=== PATIENT | male | born 1970 | race Caucasian/White ===

== ENCOUNTER 2019-09-04 19:32 | Emergency (ER) | payer BC, SELFPAY ==
[2019-09-04] VITALS (14 sets, daily range): BP systolic 112–145; BP diastolic 72–89; PULSE 57–71; RESP 16–28; TEMP 36.9; O2SAT 19–100
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
[2019-09-04] MEDS: fentaNYL 100 MCG/2 ML VIAL 50 MCG IVP ×2 (19:51→20:16)
[2019-09-04] MEDS: fentaNYL 100 MCG/2 ML VIAL (19:51)
[2019-09-04] MEDS: Omnipaque 350 MG/ML 100 ML BTL IJ (19:54)
[2019-09-04 20:00] LABS: Abs Immature Grans 0.03 k/cumm (0.0-0.09); Absolute Basophil Count 0.01 k/cumm (0.0-0.2); Absolute Eosinophil Count 0.03 k/cumm (0.0-0.7); Absolute Lymphocyte Count 1.89 k/cumm (1.2-3.4); Absolute Monocyte Count 0.56 k/cumm (0.11-0.7); Absolute Neutrophil Count 6.87 k/cumm (1.2-6.7); Basophils % 0.1; Eosinophils % 0.3; HCT 40.9 % (40.0-50.0); HGB 13.4 g/dL (13.5-17.5); Immature Grans % 0.3 %; Lymphocytes % 20.1; Mean Corp. HGB Concentration 32.8 g/dL (32.0-36.0); Mean Corpuscular Hemoglobin 26.4 pg (27.0-33.0); Mean Corpuscular Volume 80.5 fL (80-95); Mean Platelet Volume 10.6 fL (8.0-11.0); Neutrophils % 73.2; Platelet Count 190 x1000/uL (130-400); RBC 5.08 m/cumm (4.50-6.00); RBC Distribution Width 14.1 % (11.8-14.1); White Blood Cell Count 9.39 k/cumm (4.4-10.8)
[2019-09-04] MEDS: Normal Saline - Diluent 50 ML VIAL IV (20:10)
[2019-09-04] MEDS: Normal Saline Flush 10 ML SYR IVP (20:11)
[2019-09-04 20:15] LABS: ALT 58 U/L (16-63); AST 54 U/L (15-37); Albumin 4.5 g/dL (3.4-5.0); Alkaline Phosphatase 44 U/L (46-116); Anion Gap 13.1 mmol/L (3-11); BUN 30 mg/dL (7-18); Bilirubin, Total 0.5 mg/dL (0.2-1.0); CO2 24.9 mmol/L (21.0-32.0); CREATININE 1.42 mg/dL (0.70-1.30); Calcium 9.6 mg/dL (8.5-10.1); Chloride 103 mmol/L (98-107); Estimated GFR 53.21 (mL/min/1.73m2); Glucose 155 mg/dL (74-106); Magnesium 1.9 mg/dL (1.8-2.4); Potassium 3.6 mmol/L (3.5-5.1); Sodium 141 mmol/L (136-145); Total Protein 7.7 g/dL (6.4-8.2); Troponin I < 0.05 ng/mL (<0.06)
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
[2019-09-04 20:22] LABS: INR 1.1 (0.9-1.1)
[2019-09-04] MEDS: Lactated Ringers 1,000 ML 1000 ML IV (20:31)
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
[2019-09-04] MEDS: HYDROmorphone 2 MG/ML VIAL 1 MG IVP (20:56)
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
== END 2019-09-04 21:20 | disposition short-term general hospital (02) ==
PROVIDERS: Student in an Organized Health Care Education/Training Program; Emergency Provider Physician Assistant
DX: S22.41XA Multiple fractures of ribs, right side, initial encounter for closed fracture (principal); S27.0XXA Traumatic pneumothorax, initial encounter; S37.061A Major laceration of right kidney, initial encounter; S36.898A Other injury of other intra-abdominal organs, initial encounter; T79.7XXA Traumatic subcutaneous emphysema, initial encounter; S42.001A Fracture of unspecified part of right clavicle, initial encounter for closed fracture; V18.0XXA Pedal cycle driver injured in noncollision transport accident in nontraffic accident, initial encounter; Y93.55 Activity, bike riding
CPT/HCPCS: 36415; 74177; 80053; 86850; 86900; 86901; 93005; 96361; 96374; 96375; 96376; 99285; 70450; 71260; 72125; 83735; 84484; 85025; 85610; 93010; 99281; J3010; J3490; L3650

== ENCOUNTER 2019-09-20 09:18 | Outpatient (CLI) | payer BC, SELFPAY ==
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
== END 2019-09-20 09:38 ==
PROVIDERS: Referring Provider Student in an Organized Health Care Education/Training Program; Visit Provider Student in an Organized Health Care Education/Training Program
DX: S42.021A Displaced fracture of shaft of right clavicle, initial encounter for closed fracture (principal)
CPT/HCPCS: 73000

== ENCOUNTER 2019-09-21 09:28 | Day surgery (SDC) | payer BC, SELFPAY ==
--- NOTE | 2019-09-20 10:00 | ANES_ITS ---
Anesthesia Note After thorough review of the [facility] chart, there are no contraindications to proceeding with a GETA and ISB for post op analgesia if indicated.
[2019-09-21] VITALS (11 sets, daily range): BP systolic 110–130; BP diastolic 57–90; PULSE 47–57; RESP 16–22; TEMP 36–36.4; O2SAT 96–100
[2019-09-21] MEDS: Lactated Ringers 1,000 ML 100 ML IV ×2 (10:18→15:44)
--- NOTE | 2019-09-21 11:45 | DI.RAD_ITS ---
EXAM: XR CLAVICLE RT CLINICAL HISTORY: right displaced midshaft clavicle fracture TECHNIQUE: 2D and realtime digital imaging was performed. CONTRAST MATERIAL: Refer to procedure report. COMPARISON: CR XR CLAVICLE RT from 09/20/2019 FINDINGS: Fluoroscopy was provided for Dr. Howard during the performance of a reduction and internal fixation of the right clavicular fracture. Please refer to the procedure report for complete details. Fluoro time: Not obtained. IMPRESSION:
--- NOTE | 2019-09-21 11:46 | PDOC.ANES ---
Date of service: 09/21/19 Time of Service: 11:47 Anesthesia Note Performed a superficial cervical plexus block using 10 of 0.25% bupivacaine and 5ml exparel for clavicle repair. After about 20 minutes, he complained of poor voice/being hoarse. After examination, he is able to speak, swallow and take deep breaths and cough. I explained that this rarely occurs as it is a side effect of the block and appears to be a temporary paralysis of his right recurrent laryngeal nerve. This should resolve in 10-16 hours but may persist for 2-4 days given the exparel. We will continue to followup with him after surgery to make sure it has resolved. There is no reason he can not continue to his expected course and go home after surgery.
[2019-09-21] MEDS: ceFAZolin 2 GM/50 ML BAG IVPB (12:40)
--- NOTE | 2019-09-21 16:01 | W.PM.DSUDISC ---
Discharge Plan Disposition Patient Disposition: HOME Condition: Stable Discharge Details Reason For Visit: DISPLACED CLAVICLE FX Attending Provider: David Howard Primary Care Provider: Suzanne Travis Home Meds and New Rx's Prescriptions: New ibuprofen 800 mg tablet 800 mg PO BID PRN (Reason: pain, moderate) Qty: 30 RF: 0 aspirin 81 mg tablet,delayed release (DR/EC) 81 mg PO DAILY 14 Days Qty: 14 RF: 0 oxycodone 5 mg tablet 5 - 10 mg PO Q4H PRN (Reason: moderate to severe pain) Qty: 9 RF: 0 Continued acetaminophen 500 mg tablet 500 mg PO Q6H PRNRF: 0 Discharge Instructions Additional Instructions: Surgery: Right clavicle open reduction internal fixation Activity: Non-weightbearing right upper extremity except for activities of daily living. You should use the sling whenever you are out of the house. At home it is best to remove the sling and rest the arm on a pillow at your side or support the operative side with your other hand. You may allow the arm to dangle at your side. Gently increase both passive and active range of motion over the next few weeks. You should take it easy until there is early bony healing approximately 6 to 8 weeks from surgery. A physical therapy prescription will be provided separately in the office at follow-up if needed. Prescriptions: Aspirin 81 mg take 1 daily to prevent a blood clot for 2 weeks Ibuprofen 800 mg take 1 every 12 hours with a meal as needed for moderate pain Oxycodone 5 mg take 1-2 every 4-6 hours as needed for severe pain You may use [id number] Tylenol (acetaminophen) as needed for mild pain. These pain medications may be taken all at once or in different combinations as needed. Ondansetron (Zofran) 4 mg take 1 orally dissolving tablet every 6 hours as needed for nausea or vomiting Also, recommend Colace (docusate) as a stool softener as surgery and pain medicine cause constipation. Dressings: Leave dressing in place until follow-up. Keep clean and dry at all times. Please do not shower. Follow-up: 10-[address] Howard Please call the office during business hours with any questions or concerns. Let us know right away if you develop any redness, drainage, fevers, chest pain, or trouble breathing. Do not drink alcohol or drive for at least 24 hours after anesthesia. Referrals: David Howard MD [ [facility] STAFF PHYSICIAN] - Equipment/Supplies: Splint Remove Dressings/Wound Care:: Do Not Remove Diet:: As Tolerated Discharge Orders Discharge Orders: Discharge Order (Routine); Ordered 09/21/19 Ordered By: David Howard DS: Diagnosis Discharge Diagnosis (1) Fracture of right clavicle: Status: Acute
--- NOTE | 2019-09-21 16:20 | ROE_ITS ---
Date of service: 09/21/19 Time of Service: 16:01 Operative Note Operative Note DATE OF PROCEDURE: 09/21/19 PRE-OP DIAGNOSIS: Right displaced midshaft clavicle fracture POST-OP DIAGNOSIS: same PROCEDURE: Right clavicle ORIF, CPT # 08372 SURGEON: David Howard VEGETABLE SPECKER: Irene Swenson ANESTHESIA: GETA, regional and local ESTIMATED BLOOD LOSS: 30 COMPLICATIONS: None Patient was transported to: PACU Patient's condition: stable Implants: Synthes 8-hole 3.5 mm LCP superior clavicle plate with 5x 3.5mm locking screws; 1x 3.5 mm cortex lag screw Indications: Please see complete medical record for details. Findings: Comminuted widely displaced and shortened distal midshaft clavicle fracture Procedure Description: In the operating room, general anesthesia was induced. The patient was positioned supine on the operating room table. All bony prominences were well-padded. Preoperative antibiotics were administered. The right chest and shoulder was prepped and draped in the usual sterile fashion. The correct patient, procedure, and side of the procedure were all verified prior to incision. The clavicle fracture was palpated as well as localized under fluoroscopic guidance. 20 cc of 0.25% bupivacaine with epinephrine was infiltrated about the platysma and subcutaneous tissues medial and lateral to the fracture site. An incision was centered over the anterior clavicle and carried a few centimeters medially and laterally. Full-thickness flaps through skin subcutaneous tissue platysma were carried down to the fracture site. Appropriate hemostasis was achieved. There was one crossing supraclavicular nerve over the fracture site that could not reasonably be preserved. Periosteum was elevated superiorly with an elevator. The skin incisions were appropriately extended medially and laterally. The fracture ends in fracture site was cleaned of significant early callus, fibrous debris, and soft tissue. Inferior attachments of the periosteum and platysma were preserved as much as possible. Bone-holding forceps were used to manipulate the bone ends into a reduced nearly anatomic position. An additional clamp was placed across the fracture obliquity and used to adjust the fracture into anatomic reduction and compression. A piece of comminution posteriorly was used to confirm rotation and length for the reduction. This bone had tenuous soft tissue attachments and when it was mobilized for suture repair to the posterior margin of fracture site it ended up free of any soft tissue attachment. As such, the decision was made to remove it from the wound. There was strong bone a few centimeters obliquely overlapping between the proximal and distal fragment, the decision was made to place a 3.5 mm lag screw. The anterior cortex was drilled with the 3.5 mm drill, the top hat was placed, and the far cortex drilled with the 2.5 mm drill. A proper length 3.5 mm cortex lag screw was then placed and tightened with excellent fixation and compression across the fracture ends. The reduction forceps were all removed. The fracture did not budge. Thel reduction was confirmed on fluoroscopy as well as under direct visualization. The reduction was excellent and did not require any further clamping or manipulation to maintain its position. Various 7 and 8 hole superior clavicle precontoured anatomic plates were placed over the fracture, and the plate with the best fit and screw options chosen. This had to be the longer of the plate options given the significant fracture length and obliquity in order to obtain sufficient medial and lateral screws that were not fixated through narrowed bone about the fracture ends. The plate was bent just a bit to best fit the patient's anatomy at the medial tip and laterally from the fracture site. The the medial screw hole from the fracture site was predrilled through the locking guide and the locking screw hole with the 2.5 mm drill and an appropriately lengthed 3.5 mm cortex screw was placed and prior to fully tightening the screw the plate was adjusted in the anterior posterior direction to sit centrally over the medial and lateral aspects of the clavicle. The screw was then finally tightened to complete compression of the plate to bone medially. Next, the lateral screw hole just lateral fracture site was predrilled and another cortex screw was placed in a similar fashion finalizing compression of the plate to the bone. The most medial screw hole and then the most lateral 2 screw holes were predrilled and filled with appropriate length locking bicortical screws for the most rigid construct in order promote primary bone healing and this lagged, reduced fracture. The initially placed cortex screws just medial and lateral to the fracture site were sequentially removed, the locking guide placed, and re- drilled with the 2.8 mm locking drill prior to placing locking screws in these holes as well. Locking screws were also chosen to appropriately minimize motion at the fracture site in this patient who is likely to be very active early in his recovery. Final AP and [id number] fluoroscopy was used to confirm appropriate fracture reduction, hardware placement, and all screw lengths. All screws were final tightened. Lag screw still had excellent fixation strength. The construct was tested under direct manipulation and manual stress and exhibited excellent fixation strength with no motion. There was a piece of anterior comminution lateral to the fracture site. A suture tape was passed about this bone fragment as well as around the clavicle and plate construct and tightened securing it appropriately to it anterior bone donor site. The wound was copiously irrigated normal saline. Deepest fascial tissue including periosteum were closed completely over the plate and bone using 0 Monocryl in a buried interrupted fashion. Subcutaneous tissues were copiously irrigated with normal saline. Subcutaneous tissue and platysma was closed using 2-0 Monocryl in a buried interrupted fashion. Skin was closed using 3-0 Monocryl in a running subcuticular fashion. Skin glue was applied over the incision followed by a Mepilex bandage. The patient awoke from anesthesia without complication and was transferred to the recovery room in a stable condition.
[2019-09-25 23:19] LABS: SARS-CoV-2 RNA Undetected (Undetected)
== END 2019-09-21 17:34 | disposition home or self-care (01) ==
PROVIDERS: Visit Provider Student in an Organized Health Care Education/Training Program
PROC: (CPT 23515; principal; 2019-09-21 10:45)
DX: S42.021A Displaced fracture of shaft of right clavicle, initial encounter for closed fracture (principal); V19.9XXA Pedal cyclist (driver) (passenger) injured in unspecified traffic accident, initial encounter; Y93.55 Activity, bike riding; Z11.59 Encounter for screening for other viral diseases
CPT/HCPCS: 23515; C1713; 76942; U0003; 73000; J0690; J1100; J2001; J2250; J2405; J2704; L3650

== ENCOUNTER 2019-10-03 09:21 | Outpatient (CLI) | payer BC, SELFPAY ==
--- NOTE | 2019-10-03 09:00 | DI.RAD_ITS ---
EXAM: XR CLAVICLE RT CLINICAL HISTORY: fu right clavicle TECHNIQUE: COMPARISON: CR XR CLAVICLE RT from 09/20/2019 RF XR CLAVICLE RT from 09/21/2019 FINDINGS: Two views were obtained and show plate and screw fixation midclavicular fracture with no gross interv al change in alignment in comparison with intraoperative films of September 20. Fixation of the anterio r glenoid is noted as well. IMPRESSION:
== END 2019-10-03 09:41 ==
PROVIDERS: Visit Provider Student in an Organized Health Care Education/Training Program
DX: S42.001D Fracture of unspecified part of right clavicle, subsequent encounter for fracture with routine healing (principal)
CPT/HCPCS: 73000

== ENCOUNTER 2019-10-31 09:14 | Outpatient (CLI) | payer BC, SELFPAY ==
--- NOTE | 2019-10-31 08:45 | DI.RAD_ITS ---
EXAM: XR CLAVICLE RT CLINICAL HISTORY: 1st post op ORIF R CLAVICLE TECHNIQUE: 2D digital imaging was performed. COMPARISON: CR XR CLAVICLE RT from 10/03/2019 FINDINGS: There is again seen a sideplate and screws transfixing the right clavicular fracture. There has been no change in alignment of the orthopedic hardware or fracture components. No new fracture is identi fied. IMPRESSION: Stable right clavicle. DATA REPOSITORY: RADIATION DOSE DELIVERED:
== END 2019-10-31 09:34 ==
PROVIDERS: Visit Provider Student in an Organized Health Care Education/Training Program
DX: S42.001A Fracture of unspecified part of right clavicle, initial encounter for closed fracture (principal)
CPT/HCPCS: 73000

== ENCOUNTER 2019-12-11 01:21 | Outpatient (CLI) | payer BC, SELFPAY ==
[2019-12-12 20:41] LABS: COVID-19 RT-PCR Result NEGATIVE (Negative)
== END 2019-12-11 01:41 ==
PROVIDERS: Visit Provider Internal Medicine Gastroenterology
DX: Z11.59 Encounter for screening for other viral diseases (principal); Z01.818 Encounter for other preprocedural examination
CPT/HCPCS: U0003

== ENCOUNTER 2019-12-12 13:58 | Outpatient (CLI) | payer BC, SELFPAY ==
--- NOTE | 2019-12-12 08:45 | DI.RAD_ITS ---
EXAM: XR CLAVICLE RT CLINICAL HISTORY: F/U ORIF R CLAVICLE TECHNIQUE: 2D digital imaging was performed. COMPARISON: CR XR CLAVICLE RT from 10/31/2019 FINDINGS: BONES: A fixation plate is again noted along the mid to distal clavicle for fracture fixation. There has been no change in fracture or hardware alignment. No bony destructive lesion is seen. Status p ost glenoid surgery with screws and metallic anchors. JOINTS: No dislocation present. There are degenerative changes of the glenohumeral joint and mild de generative changes of the AC joint. SOFT TISSUE: Normal IMPRESSION: Stable appearance of postsurgical and degenerative changes. DATA REPOSITORY: RADIATION DOSE DELIVERED:
--- NOTE | 2019-12-12 09:00 | DI.RAD_ITS ---
EXAM: XR RIBS ONLY RT CLINICAL HISTORY: F/U FRACTURE. COMPARISON: CT CT CHEST/ABD/PEL W from 09/04/2019 FINDINGS: LUNGS: Clear. No pneumothorax is seen. BONES: There are subacute appearing right mid and lower lateral rib fractures. Fixation plate is not ed a along the distal clavicle. Multiple screws are seen in the glenoid. There are glenohumeral rosalba nt degenerative changes. IMPRESSION: Subacute lateral rib fractures.
== END 2019-12-12 14:18 ==
PROVIDERS: Visit Provider Student in an Organized Health Care Education/Training Program
DX: S22.41XA Multiple fractures of ribs, right side, initial encounter for closed fracture (principal); S42.001A Fracture of unspecified part of right clavicle, initial encounter for closed fracture; M19.011 Primary osteoarthritis, right shoulder
CPT/HCPCS: 71100; 73000

== ENCOUNTER 2020-09-10 14:43 | Outpatient (CLI) | payer BC, SELFPAY ==
--- NOTE | 2020-09-10 14:30 | DI.RAD_ITS ---
Exam(s) XR CLAVICLE RT EXAM: XR CLAVICLE RT CLINICAL HISTORY: right clavicle fx f/u. TECHNIQUE: 2D digital imaging was performed. COMPARISON: CR XR CLAVICLE RT from 12/12/2019 FINDINGS: Again noted is a dorsal fusion plate across at healing clavicular fracture site. There has been furt her healing. Fracture line is no longer visible. No hardware loosening no radiographic evidence of osteomyelitis. The AC joint is not distracted. Again noted is hardware in the ipsilateral glenohumeral joint including evidence of labral surgery an d glenoid fracture repair. There is also loose intra-articular body in the inferior recess noted of the glenohumeral joint. There also healed upper right rib fractures. IMPRESSION: DATA REPOSITORY: RADIATION DOSE DELIVERED:
== END 2020-09-10 14:44 | disposition home or self-care (01) ==
LOC: DIORS 14:43
PROVIDERS: Visit Provider Student in an Organized Health Care Education/Training Program
DX: S42.021D Displaced fracture of shaft of right clavicle, subsequent encounter for fracture with routine healing (principal); X58.XXXD Exposure to other specified factors, subsequent encounter
CPT/HCPCS: 73000

== ENCOUNTER 2020-09-11 03:07 | Outpatient (CLI) | payer BC, SELFPAY ==
[2020-09-11 11:16] LABS: Source Nasal/Nares
[2020-09-11 14:28] LABS: COVID-19 PCR Negative (Negative)
== END 2020-09-11 03:08 | disposition home or self-care (01) ==
LOC: LBO 03:08
PROVIDERS: Visit Provider Student in an Organized Health Care Education/Training Program
DX: Z20.822 Contact with and (suspected) exposure to COVID-19 (principal); Z01.818 Encounter for other preprocedural examination
CPT/HCPCS: 87635

== ENCOUNTER 2020-09-12 06:22 | Day surgery (SDC) | payer BC, SELFPAY ==
[2020-09-12] VITALS (8 sets, daily range): BP systolic 99–117; BP diastolic 46–76; PULSE 47–55; RESP 12–16; TEMP 36.2–36.4; O2SAT 97–99; BMI 26.4
--- NOTE | 2020-09-12 06:22 | W.ANESPRE ---
General Info Date of Service Date Performed: 09/12/20 Height: 6 ft 1 in Weight: 90.718 kg Body Mass Index (BMI): 26.4 Surgical Procedure: Operation Date: 09/12/20 07:40 Proposed Procedures Side Surgeon p Hardware Removal RT CLAVICLE Right David Howard MD Meds Allergies and Home Medications Allergies Allergy/AdvReac Type Severity Reaction Status Date / Time No Known Allergies Allergy Verified 09/12/20 06:34 Home Medication Medication Instructions Recorded acetaminophen 500 mg tablet 500 mg PO Q6H PRN 09/20/19 ibuprofen 800 mg PO BID PRN #30 tab 09/21/19 allopurinol 100 mg tablet 100 mg PO DAILY 09/10/20 ibuprofen 800 mg PO BID PRN #20 tab 09/12/20 tramadol 50 mg PO Q8H PRN PRN #5 tab 09/12/20 Current Visit Medications: Current Medications Generic Name Dose Route Start Last Admin Trade Name Freq PRN Reason Stop Dose Admin Ringer's Solution 1,000 mls @ 100 mls/hr 09/12/20 06:00 IV 10/11/20 23:59 INFUSION ISSAC Cefazolin Sodium/Dextrose 2 gm in 50 mls @ 100 mls/hr 09/12/20 06:00 Ancef Duplex IVPB 09/12/20 16:00 PREOP ISSAC IV Miscellaneous Supplies 1 each 09/12/20 06:00 Iv Access IV 10/11/20 23:59 DIRECTED ISSAC Sodium Chloride 0 ml 09/12/20 06:00 Normal Saline Flush 10 Ml Syr IV 10/11/20 23:59 PRN PRN Sodium Chloride 0 ml 09/12/20 06:00 Normal Saline 10 Ml Vial IJ 10/11/20 23:59 DIRECTED PRN Sterile Water 0 ml 09/12/20 06:00 Water,Injection,Sterile 10 Ml Vial IJ 10/11/20 23:59 DIRECTED PRN PFSH Active Problems Active Problems: Problem Status Onset Code Painful orthopaedic hardware [id number] Medical History Medical History Achilles tendon injury Gout Surgical History Surgical History History of shoulder surgery Hx of hand surgery Hx of knee surgery meniscus repair Tobacco Smoking/Tobacco Use Status: Never Alcohol Alcohol Intake: current Alcohol intake frequency: a few times a week Alcohol type: beer and wine Substance Use Substance use: Never Substance use type: does not use Vital Signs and Lab Results Lab Results Blood Type / Crossmatch: No Data to Display Complete Blood Count: No Data to Display Complete Metabolic Panel: No Data to Display Liver Function Panel: No Data to Display Coagulation Panel: No Data to Display Cardiac Panel: No Data to Display Arterial Blood Gas: No Data to Display Venous Blood Gas: No Data to Display Pancreas Panel: No Data to Display Thyroid Panel: No Data to Display Infectious Disease: Coronavirus (COVID-19)(PCR) Negative (Negative) 09/11/20 10:35 09/11/20 Coronavirus 2019 Source Nasal/Nares 09/11/20 10:35 09/11/20 Blood Cultures: No Data to Display Toxicology Panel: No Data to Display Anesthesia Assessment and Plan Anesthesia History Personal History: No History of Anesthesia Complications Family History: No Family History of Anesthesia Complications Exercise Tolerance Exercise Tolerance: Metabolic Equivalents>4 Pertinent Negatives Pertinent Negatives: No Symptoms of GERD, No Major Cardiovascular Symptoms or Complaints, No Major Pulmonary Symptoms or Complaints and No History of CVA/TIA Cardiac & Pulmonary Exam Cardiac Exam: Normal S1/S2 Heart Sounds Pulmonary Exam: Clear Bilateral Breath Sounds Airway Exam Known Difficult Airway: No Mallampati Class: 1 Mouth Opening: Normal (> 3cm) Thyromental Distance: Greater than 3 cm Neck Range of Motion: Full ROM Neck Circumference: Normal Teeth Condition: Normal Dentition ASA Classification ASA Score: ASA 2 Emergency Case?: No NPO Status NPO Status: NPO Clears >2 hours, Solids >8 hours Anesthesia Plan Resuscitation Status: Full Code Anesthesia Technique: General Anesthesia Airway Planned: LMA Monitors Used: Standard Monitors Preoperative Comments:: 50 yo male for painful hardware removal from clavicle. Previous glide 3 grade 1, no masking documented. Also, RLN likely temporally blocked during hardware placement.
[2020-09-12] MEDS: Lactated Ringers 1,000 ML 100 ML IV (07:00)
--- NOTE | 2020-09-12 07:15 | DI.RAD_ITS ---
Exam(s) XR CLAVICLE RT LIMITED 1V EXAM: XR CLAVICLE RT LIMITED 1V CLINICAL HISTORY: RIGHT CLAVICLE PAINFUL HARDWARE. TECHNIQUE: 2D digital imaging was performed. COMPARISON: CR XR CLAVICLE RT from 09/10/2020 CR XR CLAVICLE RT from 09/10/2020 FINDINGS: Fluoroscopy was provided during orthopedic procedure consisting of removal of hardware from right cla vicle. Submitted C-arm image reveals absence of previously present dorsal fusion plate and multiple screws from the clavicle. IMPRESSION: As above. Total fluoroscopy time 3.6 seconds Total clipped of dose 0.24mGy DATA REPOSITORY: RADIATION DOSE DELIVERED:
[2020-09-12] MEDS: ceFAZolin 2 GM/50 ML BAG IVPB (07:29)
--- NOTE | 2020-09-12 08:54 | W.PM.DSUDISC ---
Discharge Plan Disposition Patient Disposition: HOME Condition: Stable Discharge Details Reason For Visit: (R) CLAVICLE REMOVAL OF HARDWARE Attending Provider: David Howard Primary Care Provider: Suzanne Travis [place] Meds and New Rx's Prescriptions: New ibuprofen 800 mg tablet 800 mg PO BID PRN (Reason: pain, moderate) Qty: 20 RF: 0 tramadol 50 mg Tablet 50 mg PO Q8H PRN PRN (Reason: severe pain) Qty: 5 RF: 0 Continued acetaminophen 500 mg tablet 500 mg PO Q6H PRNRF: 0 allopurinol 100 mg tablet 100 mg PO DAILY RF: 0 ibuprofen 800 mg tablet 800 mg PO BID PRN (Reason: pain, moderate) Qty: 30 RF: 0 Discharge Instructions Additional Instructions: Surgery: Right clavicle removal of hardware Activity: Weightbearing as tolerated. Ice and elevation may minimize swelling and discomfort over the next few days. Recommend avoiding high impact and high risk activities for about 2 weeks. Prescriptions: Ibuprofen 800 mg take 1 every 12 hours with a meal as needed for moderate pain Tramadol 50 mg take 1 every 8 hours as needed for severe pain You may use [id number] Tylenol (acetaminophen) as needed for mild pain. These pain medications may be taken all at once or in different combinations as needed. Also, recommend Colace (docusate) as a stool softener as surgery and pain medicine cause constipation. Dressings: Leave dressing in place for 5 days. May then remove and leave open to air or cover incision with Band-Aid. May shower after 7 days. Follow-up: 10-[address] Howard (09/25/20 at 8:45 AM) Let us know right away if you develop any redness, drainage, fevers, chest pain, or trouble breathing. Do not drink alcohol or drive for at least 24 hours after anesthesia. Please call the office during business hours with any questions or concerns. Referrals: David Howard MD [ [facility] STAFF PHYSICIAN] - Discharge Orders Discharge Orders: Discharge Order (Routine); Ordered 09/12/20 Ordered By: David Howard DS: Diagnosis Discharge Diagnosis (1) Painful orthopaedic hardware: Status: Acute
--- NOTE | 2020-09-12 09:01 | W.PM.OP ---
Date of service: 09/12/20 Time of Service: 08:00 Operative Note Operative Note DATE OF PROCEDURE: 09/12/20 PRE-OP DIAGNOSIS: Right clavicle symptomatic hardware POST-OP DIAGNOSIS: same PROCEDURE: Right clavicle removal of hardware, CPT# 80279 SURGEON: David Howard MINI SHIFTER: Mann Terry ANESTHESIA TYPE: Local By Surgeon and General LMA/ETT Refer to Anesthesia Record ESTIMATED BLOOD LOSS: 5 PATHOLOGY: none sent COMPLICATIONS: None Patient was transported to: PACU Patient's condition: stable Indications: Please see complete medical record for details. Procedure Description: In the operating room, general anesthesia was induced. The patient was positioned supine on the operating room table. All bony prominences were well-padded. Preoperative antibiotics were administered. The right clavicle was prepped and draped in the usual sterile fashion. The correct patient, procedure, and side of the procedure were all verified prior to incision. The prior incision was identified and preinjected superficially and deeply about the palpable hardware with 30 cc of 0.5% bupivacaine containing epinephrine. The central about 80% of the incision was opened sharply raising full-thickness flaps down to the clavicle and palpable hardware. Elevators were used to expose the clavicle plate and screws medially and laterally as well as identify the anterior cortex screw and more lateral suture tape cerclage. There was excellent healing of robust soft tissue over the entirety of the hardware with early bone coverage anteriorly and centrally. The fracture site was completely healed. There was no sign of deep space infection. The suture tape was cut and removed in entirety. The hex screwdriver was used to remove the cortex screw. In a sequential fashion working from medial to lateral each locking screw was then disengaged carefully from the plate and removed in entirety. The plate was gently freed from soft tissue and bone with elevators and removed as well. Final x-ray confirmed excellent anatomic healing of the clavicle and removal of all hardware. Soft tissue and bony prominences were removed with rongeur and smoothed with rasp. Each screw hole was lightly abraded with a curette. The deep and superficial wound was copiously irrigated with normal saline. There was excellent hemostasis. Deep tissue was closed over the clavicle using 2-0 Monocryl in a buried interrupted fashion. Subcutaneous tissue was closed also using 2-0 Monocryl in a buried interrupted fashion. The skin was closed using 3-0 Monocryl in a running subcuticular fashion. The incision was covered with skin glue and a Mepilex bandage. The patient awoke from anesthesia without complication and was transferred to the recovery room in a stable condition.
--- NOTE | 2020-09-12 10:25 | W.ANESPOSTOP ---
Postoperative Evaluation Date, Time and Location Date Performed: 09/12/20 Time Performed: 10:25 Patient Location: Day [facility] Unit Vital Signs Most Recent Imported Vital Signs: Most Recent Vital Signs Temp Pulse Resp BP Pulse Ox 36.2 C L 55 L 16 108/74 99 09/12/20 10:13 09/12/20 10:13 09/12/20 10:13 09/12/20 10:13 09/12/20 10:13 Pain Score Most Recent Pain Score: Most Recent Pain Score Pain Level 0 09/12/20 10:13 Assessment Mental Status: Awake (Alert & Oriented to Patient Baseline) Airway and Respiratory Function: Patent airway with normal (patient baseline) respiratory exam Cardiovascular Function: Hemodynamically Stable Hydration Status: Adequately Hydrated Nausea & Vomiting: No Nausea or Vomiting Pain: Pt. Denies Any Pain Peripheral Nerve Block: Patient did not receive a nerve block
== END 2020-09-12 10:55 | disposition home or self-care (01) ==
PROVIDERS: Visit Provider Student in an Organized Health Care Education/Training Program
PROC: (CPT 20680; principal; 2020-09-12 07:30)
DX: T84.84XA Pain due to internal orthopedic prosthetic devices, implants and grafts, initial encounter (principal)
CPT/HCPCS: 20680; 73000; J0690; J1100; J1885; J2001; J2405

== ENCOUNTER 2020-10-13 20:34 | Emergency (ER) | payer BC, SELFPAY ==
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
[2020-10-13 20:46] VITALS: BP 152/82; PULSE 70; RESP 18; TEMP 36.4; O2SAT 96
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
[2020-10-13 22:47] VITALS: BP 158/93; PULSE 58; RESP 16; O2SAT 98
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
[2020-10-13] MEDS: Acetaminophen 500 MG TAB 1000 MG PO (23:33)
== END 2020-10-13 23:36 | disposition short-term general hospital (02) ==
PROVIDERS: Emergency Provider Student in an Organized Health Care Education/Training Program
DX: S12.690A Other displaced fracture of seventh cervical vertebra, initial encounter for closed fracture (principal); M54.5 Low back pain; V19.9XXA Pedal cyclist (driver) (passenger) injured in unspecified traffic accident, initial encounter
CPT/HCPCS: 99285; 70450; 71045; 72125; 72128; 72131

== ENCOUNTER 2020-10-30 02:57 | Outpatient (CLI) | payer BC, SELFPAY ==
[2020-10-30 10:16] LABS: Abs Immature Grans 0.06 10^3/uL (0.0-0.06); Absolute Basophil Count 0.04 10^3/uL (0.0-0.2); Absolute Eosinophil Count 0.07 10^3/uL (0.0-0.7); Absolute Lymphocyte Count 1.31 10^3/uL (1.2-3.4); Absolute Neutrophil Count 3.74 10^3/uL (1.2-6.7); Basophils % 0.7; Eosinophils % 1.2; HCT 41.5 % (40.0-50.0); Lymphocytes % 22.9; MCH 26.1 pg (27.0-33.0); MCHC 31.3 % (32.0-36.0); MCV 83.3 fL (80-95); MPV 9.4 fL (8.0-11.0); Monocytes % 8.7; Neutrophils % 65.5; Nucleated RBC 0 %; Platelet Count 391 10^3/uL (130-400); RBC 4.98 10^6/uL (4.36-5.78); RDW 13.1 % (11.8-14.1); RDW-SD 39.8 fL; WBC 5.72 10^3/uL (4.4-10.8)
[2020-10-30 11:09] LABS: ALT 63 U/L (16-63); AST 30 U/L (15-37); Albumin 4.2 g/dL (3.4-5.0); Alkaline Phosphatase 92 U/L (46-116); Anion Gap 4.1 mmol/L (3-11); BUN 23 mg/dL (7-18); Bilirubin, Total 0.3 mg/dL (0.2-1.0); CO2 31.9 mmol/L (21.0-32.0); Chloride 106 mmol/L (98-107); Glucose 98 mg/dL (74-106); Potassium 5.1 mmol/L (3.5-5.1); Sodium 142 mmol/L (136-145); Total Protein 7.6 g/dL (6.4-8.2); Uric Acid 5.1 mg/dL (3.5-7.2)
== END 2020-10-30 02:58 | disposition home or self-care (01) ==
LOC: LBO 02:57
PROVIDERS: Internal Medicine
DX: M1A.00X1 Idiopathic chronic gout, unspecified site, with tophus (tophi) (principal); Z79.899 Other long term (current) drug therapy
CPT/HCPCS: 36415; 80053; 84550; 85025

== ENCOUNTER 2020-10-30 08:43 | Emergency (ER) | payer BC, SELFPAY ==
[2020-10-30 08:48] VITALS: BP 114/69; PULSE 65; RESP 16; TEMP 36.4; O2SAT 99
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
[2020-10-30 09:19] VITALS: BP 114/69; PULSE 65; RESP 16; TEMP 36.4; O2SAT 99
== END 2020-10-30 09:25 | disposition home or self-care (01) ==
PROVIDERS: Emergency Provider Registered Nurse Emergency
DX: S12.690D Other displaced fracture of seventh cervical vertebra, subsequent encounter for fracture with routine healing (principal); V18.0XXD Pedal cycle driver injured in noncollision transport accident in nontraffic accident, subsequent encounter; Z98.890 Other specified postprocedural states; Z48.02 Encounter for removal of sutures
CPT/HCPCS: 99281; 99282